=== PATIENT | male | born 1965 | race Two or more races ===

== ENCOUNTER 2017-11-24 17:26 | Inpatient (IN) | payer MEDICARE, OTHER ==
[2017-11-24 17:57] LABS: ADD MAN DIFF? NO
[2017-11-24 17:59] LABS: BASOPHIL # 0.1 10^3/ul (0.0-0.1); BASOPHILS % 0.7 % (0.0-2.0); EOSINOPHILS % 0.3 % (0.0-7.0); HEMOGLOBIN 16.7 g/dl (14.0-18.0); LYMPHOCYTES % 10.4 % (15.0-51.0); MEAN CORPUSCULAR HEMOGLOBIN 29.7 pg (29.0-33.0); MEAN CORPUSCULAR HGB CONC 33.4 g/dl (32.0-37.0); MEAN PLATELET VOLUME 9.1 fl (7.4-10.4); MONOCYTE # 1.1 10^3/ul (0.3-0.9); MONOCYTES % 11.4 % (0.0-11.0); NEUTROPHIL # 7.7 10^3/ul (1.6-7.5); NEUTROPHILS % 76.8 % (39.0-77.0); PLATELET COUNT 470 10^3/UL (140-415); RED BLOOD COUNT 5.62 10^6/ul (4.70-6.10); RED CELL DISTRIBUTION WIDTH 14.2 % (11.5-14.5)
[2017-11-24] MEDS: LACTATED RINGER'S 1,000 ML IV (18:00)
[2017-11-24] MEDS: ONDANSETRON 4 MG INJ IV (18:00)
[2017-11-24] MEDS: morphine 4 MG/ML VIAL IV ×2 (18:01→21:46)
[2017-11-24 18:19] LABS: PROTIME 13.3 Sec (11.9-14.9)
[2017-11-24 18:20] LABS: PARTIAL THROMBOPLASTIN TIME 29.2 Sec (25.0-35.0)
[2017-11-24 18:21] LABS: ALANINE AMINOTRANSFERASE 63 IU/L (13-69); ALBUMIN 3.9 g/dl (3.3-4.9); ALBUMIN/GLOBULIN RATIO 1.05; ALKALINE PHOSPHATASE 173 IU/L (42-121); ANION GAP 17 (8-16); ASPARTATE AMINO TRANSFERASE 61 IU/L (15-46); BILIRUBIN,INDIRECT 0.7 mg/dl (0-1.1); BILIRUBIN,TOTAL 0.7 mg/dl (0.2-1.3); BLOOD UREA NITROGEN 52 mg/dl (7-20); CALCIUM 9.8 mg/dl (8.4-10.2); CARBON DIOXIDE 31 mmol/L (21-31); CHLORIDE 92 mmol/L (97-110); CREATININE 2.14 mg/dl (0.61-1.24); GLUCOSE 145 mg/dl (70-220); LIPASE 105 U/L (23-300); SODIUM 136 mmol/L (135-144); TOTAL PROTEIN 7.6 g/dl (6.1-8.1)
[2017-11-24 18:33] LABS: TROPONIN-I 0.027 ng/ml (0.00-0.12)
[2017-11-24 18:56] LABS: LACTIC ACID 2.5 mmol/L (0.5-2.0)
[2017-11-24] MEDS: SOD CHLORIDE 0.9% 1,000 ML IV ×3 (19:32→23:27)
[2017-11-24] MEDS: traZODone 50 MG TAB PO (22:23)
[2017-11-24] MEDS: LORAZEPAM 2 MG INJ IV (22:23)
[2017-11-24] MEDS ORDERED: NACL 0.9% 3 ML SYG IV (22:30)
[2017-11-24] MEDS ORDERED: ONDANSETRON 4 MG INJ IV (22:30)
[2017-11-24] MEDS ORDERED: ACETAMINOPHEN 325 MG TAB PO (22:30)
[2017-11-24] MEDS ORDERED: ACETAMINOPHEN 1000MG/100ML IV 100 ML IVPB (22:30)
[2017-11-24] MEDS: PIPER-TAZO 3.375 GM IV (PMX) 100 ML IVPB (23:31)
[2017-11-24] MEDS: HYDROmorphONE 0.5 MG/0.5 ML SYG IV (23:36)
[2017-11-25 01:02] LABS: ADD MAN DIFF? NO
[2017-11-25 01:06] LABS: BASOPHIL # 0.1 10^3/ul (0.0-0.1); BASOPHILS % 0.8 % (0.0-2.0); EOSINOPHILS % 0.3 % (0.0-7.0); HEMATOCRIT 42.6 % (42.0-52.0); HEMOGLOBIN 14.3 g/dl (14.0-18.0); LYMPHOCYTES # 1.1 10^3/ul (0.8-2.9); LYMPHOCYTES % 16.7 % (15.0-51.0); MEAN CORPUSCULAR HEMOGLOBIN 29.9 pg (29.0-33.0); MEAN CORPUSCULAR HGB CONC 33.6 g/dl (32.0-37.0); MEAN CORPUSCULAR VOLUME 88.9 fl (82.0-101.0); MEAN PLATELET VOLUME 9.4 fl (7.4-10.4); MONOCYTE # 0.8 10^3/ul (0.3-0.9); MONOCYTES % 12.9 % (0.0-11.0); NEUTROPHIL # 4.3 10^3/ul (1.6-7.5); PLATELET COUNT 403 10^3/UL (140-415); POSITIVE DIFF @See below; RED BLOOD COUNT 4.79 10^6/ul (4.70-6.10); RED CELL DISTRIBUTION WIDTH 14.4 % (11.5-14.5)
[2017-11-25 01:06] LABS: WHITE BLOOD COUNT 6.3 10^3/ul (4.8-10.8)
[2017-11-25 01:28] LABS: LACTIC ACID 1.5 mmol/L (0.5-2.0)
[2017-11-25 05:06] LABS: ADD MAN DIFF? NO
[2017-11-25 05:12] LABS: WHITE BLOOD COUNT 6.6 10^3/ul (4.8-10.8)
[2017-11-25 05:12] LABS: BASOPHIL # 0.1 10^3/ul (0.0-0.1); BASOPHILS % 0.9 % (0.0-2.0); EOSINOPHILS # 0.1 10^3/ul (0.0-0.5); EOSINOPHILS % 0.8 % (0.0-7.0); HEMATOCRIT 42.5 % (42.0-52.0); HEMOGLOBIN 14.1 g/dl (14.0-18.0); LYMPHOCYTES # 1.1 10^3/ul (0.8-2.9); LYMPHOCYTES % 16.7 % (15.0-51.0); MEAN CORPUSCULAR HEMOGLOBIN 29.7 pg (29.0-33.0); MEAN CORPUSCULAR HGB CONC 33.2 g/dl (32.0-37.0); MEAN CORPUSCULAR VOLUME 89.5 fl (82.0-101.0); MEAN PLATELET VOLUME 9.5 fl (7.4-10.4); MONOCYTE # 0.9 10^3/ul (0.3-0.9); MONOCYTES % 13.1 % (0.0-11.0); NEUTROPHIL # 4.5 10^3/ul (1.6-7.5); NEUTROPHILS % 68.2 % (39.0-77.0); PLATELET COUNT 395 10^3/UL (140-415); POSITIVE DIFF @See below; RED BLOOD COUNT 4.75 10^6/ul (4.70-6.10); RED CELL DISTRIBUTION WIDTH 14.4 % (11.5-14.5)
[2017-11-25 05:20] LABS: HEMOGLOBIN A1C 5.2 % (0-5.9)
[2017-11-25 05:43] LABS: ALANINE AMINOTRANSFERASE 51 IU/L (13-69); ALBUMIN/GLOBULIN RATIO 0.93; ALKALINE PHOSPHATASE 124 IU/L (42-121); ANION GAP 15 (8-16); ASPARTATE AMINO TRANSFERASE 44 IU/L (15-46); BILIRUBIN,INDIRECT 0.4 mg/dl (0-1.1); BILIRUBIN,TOTAL 0.4 mg/dl (0.2-1.3); BLOOD UREA NITROGEN 68 mg/dl (7-20); CALCIUM 8.3 mg/dl (8.4-10.2); CARBON DIOXIDE 29 mmol/L (21-31); CHLORIDE 95 mmol/L (97-110); CHOL/HDL RATIO 2.6 RATIO; CHOLESTEROL 98 mg/dl (100-200); CREATININE 2.66 mg/dl (0.61-1.24); GLUCOSE 131 mg/dl (70-220); HDL CHOLESTEROL 37 mg/dl (28-71); LDL CHOLESTEROL,CALCULATED 45 mg/dl; POTASSIUM 4.1 mmol/L (3.5-5.1); SODIUM 135 mmol/L (135-144); TOTAL PROTEIN 6.2 g/dl (6.1-8.1); TRIGLYCERIDES 81 mg/dl (0-149)
[2017-11-25 05:49] LABS: LACTIC ACID 1.3 mmol/L (0.5-2.0)
[2017-11-25] MEDS: PIPER-TAZO 3.375 GM IV (PMX) 100 ML IVPB ×4 (05:49→23:20)
[2017-11-25] MEDS ORDERED: PIPER-TAZO 3.375 GM IV (PMX) 100 ML IVPB ×2 (06:00)
[2017-11-25] MEDS ORDERED: PANTOPRAZOLE 40 MG INJ IV (06:00)
[2017-11-25 06:10] LABS: THYROID STIMULATING HORMONE 0.582 MIU/L (0.465-4.680)
[2017-11-25] MEDS: morphine 2 MG INJ IV ×2 (06:11→12:06)
[2017-11-25] MEDS: PANTOPRAZOLE 40 MG INJ IV ×2 (06:11→17:19)
[2017-11-25] MEDS: CEPASTAT LOZENGE MT (06:11)
[2017-11-25] MEDS: HYDROmorphONE 0.5 MG/0.5 ML SYG IV (09:34)
[2017-11-25] MEDS: SOD CHLORIDE 0.9% 1,000 ML IV ×3 (09:35→23:19)
[2017-11-25 09:45] LABS: ADD UMIC YES; UR ASCORBIC ACID NEGATIVE (NEGATIVE); UR BACTERIA FEW /HPF (NONE SEEN); UR BILIRUBIN (Dip) NEGATIVE (NEGATIVE); UR BLOOD (Dip) NEGATIVE (NEGATIVE); UR CLARITY CLEAR (CLEAR); UR COLOR YELLOW (YELLOW); UR GLUCOSE (Dip) NEGATIVE (NEGATIVE); UR KETONES (Dip) NEGATIVE (NEGATIVE); UR LEUKOCYTE ESTERASE (Dip) NEGATIVE Leu/ul (NEGATIVE); UR NITRITE (Dip) NEGATIVE (NEGATIVE); UR RBC 0 /HPF (0-5); UR SPECIFIC GRAVITY (Dip) 1.015 (1.003-1.030); UR TOTAL PROTEIN (Dip) 1+ mg/dl (NEGATIVE); UR UROBILINOGEN (Dip) NEGATIVE (NEGATIVE); UR WBC 2 /HPF (0-5)
[2017-11-25 12:33] LABS: ADD UMIC NO; UR ASCORBIC ACID NEGATIVE (NEGATIVE); UR BILIRUBIN (Dip) NEGATIVE (NEGATIVE); UR BLOOD (Dip) NEGATIVE (NEGATIVE); UR CLARITY CLEAR (CLEAR); UR COLOR YELLOW (YELLOW); UR GLUCOSE (Dip) NEGATIVE (NEGATIVE); UR KETONES (Dip) NEGATIVE (NEGATIVE); UR LEUKOCYTE ESTERASE (Dip) NEGATIVE Leu/ul (NEGATIVE); UR NITRITE (Dip) NEGATIVE (NEGATIVE); UR SPECIFIC GRAVITY (Dip) 1.014 (1.003-1.030); UR TOTAL PROTEIN (Dip) NEGATIVE (NEGATIVE); UR UROBILINOGEN (Dip) NEGATIVE (NEGATIVE)
[2017-11-25 13:04] LABS: SODIUM,URINE RANDOM < 5 mmol/L (30-90)
[2017-11-25 14:52] LABS: ADD MAN DIFF? NO
[2017-11-25 14:54] LABS: BASOPHILS % 0.4 % (0.0-2.0); EOSINOPHILS # 0.1 10^3/ul (0.0-0.5); EOSINOPHILS % 1.3 % (0.0-7.0); HEMATOCRIT 36.4 % (42.0-52.0); HEMOGLOBIN 12.3 g/dl (14.0-18.0); LYMPHOCYTES # 1.2 10^3/ul (0.8-2.9); LYMPHOCYTES % 16.9 % (15.0-51.0); MEAN CORPUSCULAR HEMOGLOBIN 30.1 pg (29.0-33.0); MEAN CORPUSCULAR HGB CONC 33.8 g/dl (32.0-37.0); MEAN PLATELET VOLUME 9.5 fl (7.4-10.4); MONOCYTE # 0.9 10^3/ul (0.3-0.9); MONOCYTES % 12.8 % (0.0-11.0); NEUTROPHIL # 4.8 10^3/ul (1.6-7.5); NEUTROPHILS % 68.2 % (39.0-77.0); PLATELET COUNT 319 10^3/UL (140-415); POSITIVE DIFF @See below; RED BLOOD COUNT 4.09 10^6/ul (4.70-6.10); RED CELL DISTRIBUTION WIDTH 14.5 % (11.5-14.5)
[2017-11-25 17:04] LABS: ANISOCYTOSIS 1+ (0-0); BAND NEUTROPHILS #M 2.7 10^3/ul (0.0-0.6); BAND NEUTROPHILS % (M) 39 % (0-4); EOSINOPHILS % (M) 1 % (0-7); GIANT THROMBO% (M) 1 % (0-0); LYMPHOCYTES #M 0.7 10^3/ul (0.8-2.9); LYMPHOCYTES % (M) 11 % (15-51); MICROCYTOSIS 1+ (0-0); MONOCYTE #M 1.1 10^3/ul (0.3-0.9); MONOCYTES % (M) 16 % (0-11); PLATELET MORPHOLOGY COMMENT @See below; POLYCHROMASIA 3+ (0-0); REACTIVE LYMPHOCYTES #M 0.2 10^3/ul (0.0-0.0); REACTIVE LYMPHOCYTES% (M) 3 % (0-0); SEG NEUT #M 2.3 10^3/ul (1.6-7.5); SEGMENTED NEUTROPHILS (M) % 30 % (39-77); SMUDGE%M 1 % (0-0)
[2017-11-25] MEDS ORDERED: POLYMYXIN/BACITRACIN 1L IRRIG (19:37)
[2017-11-25] MEDS ORDERED: BUPIVACAINE 0.5% (SDV) 30 ML INJ (19:37)
[2017-11-25] MEDS ORDERED: ROCURONIUM 50 MG INJ ×2 (19:55→20:47)
[2017-11-25] MEDS ORDERED: ONDANSETRON 4 MG INJ (19:55)
[2017-11-25] MEDS ORDERED: FENTAnyl 50 MCG/ML VIAL (19:55)
[2017-11-25] MEDS ORDERED: PROPOFOL 20 ML (19:55)
[2017-11-25] MEDS ORDERED: METOCLOPRAMIDE 10 MG INJ (19:55)
[2017-11-25] MEDS ORDERED: MIDAZOLAM 1 MG/ML 2 ML INJ (19:55)
[2017-11-25] MEDS ORDERED: ROPIVACAINE 0.5 % 30 ML VIAL (19:55)
[2017-11-25] MEDS ORDERED: KETOROLAC 30 MG INJ (19:58)
[2017-11-25] MEDS ORDERED: PHENYLephrine (100 MCG/ML) 5ML SYG (20:06)
[2017-11-25] MEDS ORDERED: EPHEDrine SULFATE 50 MG/5 ML SYG IV (20:30)
[2017-11-25] MEDS ORDERED: MEPERIDINE 25 MG INJ IV (20:30)
[2017-11-25] MEDS ORDERED: HYDROmorphONE (0.2 MG/ML) 10ML SYG IV ×3 (20:30)
[2017-11-25] MEDS ORDERED: HYDROmorphONE 2 MG/ML SYG (20:47)
[2017-11-25] MEDS ORDERED: NEOSTIGMINE 3 MG/3 ML SYRINGE (20:53)
[2017-11-25] MEDS ORDERED: GLYCOPYRROLATE 0.4 MG INJ (20:53)
[2017-11-25] MEDS: BUPIVACAINE 0.25% (MPF) 30 ML INJ (20:57)
[2017-11-25] MEDS ORDERED: ONDANSETRON 4 MG INJ IV (21:00)
[2017-11-25] MEDS ORDERED: morphine 2 MG INJ IV (21:00)
[2017-11-25] MEDS: ONDANSETRON 4 MG INJ IV (21:25)
[2017-11-25] MEDS: DIPHENHYDRAMINE 50 MG INJ IV (21:26)
[2017-11-25 23:06] LABS: ADD MAN DIFF? NO
[2017-11-25 23:08] LABS: BASOPHILS % 0.6 % (0.0-2.0); EOSINOPHILS # 0.1 10^3/ul (0.0-0.5); EOSINOPHILS % 2.1 % (0.0-7.0); HEMATOCRIT 36.9 % (42.0-52.0); HEMOGLOBIN 12.1 g/dl (14.0-18.0); LYMPHOCYTES # 1.5 10^3/ul (0.8-2.9); LYMPHOCYTES % 21.8 % (15.0-51.0); MEAN CORPUSCULAR HEMOGLOBIN 30.2 pg (29.0-33.0); MEAN CORPUSCULAR HGB CONC 32.8 g/dl (32.0-37.0); MEAN PLATELET VOLUME 9.1 fl (7.4-10.4); MONOCYTE # 0.9 10^3/ul (0.3-0.9); MONOCYTES % 13.2 % (0.0-11.0); NEUTROPHIL # 4.1 10^3/ul (1.6-7.5); NEUTROPHILS % 61.3 % (39.0-77.0); PLATELET COUNT 306 10^3/UL (140-415); POSITIVE DIFF @See below; RED BLOOD COUNT 4.01 10^6/ul (4.70-6.10); RED CELL DISTRIBUTION WIDTH 14.5 % (11.5-14.5)
[2017-11-25 23:08] LABS: WHITE BLOOD COUNT 6.7 10^3/ul (4.8-10.8)
[2017-11-26] MEDS: morphine 2 MG INJ IV ×5 (00:18→21:56)
[2017-11-26] MEDS: PIPER-TAZO 3.375 GM IV (PMX) 100 ML IVPB (05:29)
[2017-11-26] MEDS: PANTOPRAZOLE 40 MG INJ IV ×2 (05:30→17:41)
[2017-11-26 05:55] LABS: ADD MAN DIFF? NO
[2017-11-26 06:02] LABS: BASOPHILS % 0.5 % (0.0-2.0); EOSINOPHILS # 0.1 10^3/ul (0.0-0.5); EOSINOPHILS % 2.1 % (0.0-7.0); HEMATOCRIT 35.8 % (42.0-52.0); HEMOGLOBIN 11.7 g/dl (14.0-18.0); LYMPHOCYTES # 1.3 10^3/ul (0.8-2.9); LYMPHOCYTES % 20.3 % (15.0-51.0); MEAN CORPUSCULAR HEMOGLOBIN 29.8 pg (29.0-33.0); MEAN CORPUSCULAR HGB CONC 32.7 g/dl (32.0-37.0); MEAN CORPUSCULAR VOLUME 91.1 fl (82.0-101.0); MEAN PLATELET VOLUME 9.6 fl (7.4-10.4); MONOCYTE # 0.8 10^3/ul (0.3-0.9); MONOCYTES % 12.5 % (0.0-11.0); NEUTROPHIL # 3.9 10^3/ul (1.6-7.5); NEUTROPHILS % 63.8 % (39.0-77.0); PLATELET COUNT 351 10^3/UL (140-415); POSITIVE DIFF @See below; RED BLOOD COUNT 3.93 10^6/ul (4.70-6.10); RED CELL DISTRIBUTION WIDTH 14.6 % (11.5-14.5)
[2017-11-26 06:02] LABS: WHITE BLOOD COUNT 6.2 10^3/ul (4.8-10.8)
[2017-11-26 06:19] LABS: ANION GAP 13 (8-16); BLOOD UREA NITROGEN 37 mg/dl (7-20); CALCIUM 7.8 mg/dl (8.4-10.2); CARBON DIOXIDE 26 mmol/L (21-31); CHLORIDE 102 mmol/L (97-110); CREATININE 1.42 mg/dl (0.61-1.24); GLUCOSE 119 mg/dl (70-220); POTASSIUM 3.8 mmol/L (3.5-5.1); SODIUM 137 mmol/L (135-144)
[2017-11-26 06:23] LABS: MAGNESIUM 2.3 mg/dl (1.7-2.5)
[2017-11-26 06:23] LABS: PHOSPHORUS 3.9 mg/dl (2.5-4.9)
[2017-11-26] MEDS: SOD CHLORIDE 0.9% 1,000 ML IV ×2 (08:42→21:10)
[2017-11-26 15:51] LABS: CREATININE, RANDOM URINE 85 mg/dL (20-370); MICROALBUMIN 1.1 mg/dL; MICROALBUMIN/CREATININE RATIO 13 (<30)
[2017-11-26] MEDS: HYDROmorphONE 0.5 MG/0.5 ML SYG IV (17:41)
[2017-11-26] MEDS: OXYCODONE/ACETAMINOPHEN (5/325) TAB PO (21:12)
[2017-11-27] MEDS: morphine 2 MG INJ IV ×2 (02:31→06:59)
[2017-11-27] MEDS: OXYCODONE/ACETAMINOPHEN (5/325) TAB PO ×2 (05:00→10:15)
[2017-11-27 05:23] LABS: ADD MAN DIFF? NO
[2017-11-27 05:25] LABS: WHITE BLOOD COUNT 5.3 10^3/ul (4.8-10.8)
[2017-11-27 05:25] LABS: BASOPHILS % 0.6 % (0.0-2.0); EOSINOPHILS # 0.2 10^3/ul (0.0-0.5); HEMATOCRIT 33.3 % (42.0-52.0); HEMOGLOBIN 10.7 g/dl (14.0-18.0); LYMPHOCYTES # 1.4 10^3/ul (0.8-2.9); LYMPHOCYTES % 25.4 % (15.0-51.0); MEAN CORPUSCULAR HEMOGLOBIN 29.6 pg (29.0-33.0); MEAN CORPUSCULAR HGB CONC 32.1 g/dl (32.0-37.0); MEAN CORPUSCULAR VOLUME 92.2 fl (82.0-101.0); MEAN PLATELET VOLUME 9.2 fl (7.4-10.4); MONOCYTE # 0.7 10^3/ul (0.3-0.9); MONOCYTES % 13.2 % (0.0-11.0); NEUTROPHILS % 56.7 % (39.0-77.0); PLATELET COUNT 336 10^3/UL (140-415); RED BLOOD COUNT 3.61 10^6/ul (4.70-6.10); RED CELL DISTRIBUTION WIDTH 14.1 % (11.5-14.5)
[2017-11-27 05:52] LABS: ANION GAP 10 (8-16); BLOOD UREA NITROGEN 14 mg/dl (7-20); CALCIUM 7.5 mg/dl (8.4-10.2); CARBON DIOXIDE 27 mmol/L (21-31); CHLORIDE 102 mmol/L (97-110); CREATININE 0.88 mg/dl (0.61-1.24); GLUCOSE 109 mg/dl (70-220); MAGNESIUM 2.1 mg/dl (1.7-2.5); PHOSPHORUS 3.1 mg/dl (2.5-4.9); POTASSIUM 3.4 mmol/L (3.5-5.1); SODIUM 136 mmol/L (135-144)
[2017-11-27] MEDS: PANTOPRAZOLE 40 MG INJ IV (06:11)
[2017-11-27] MEDS: SOD CHLORIDE 0.9% 1,000 ML IV (10:08)
[2017-11-27] MEDS: POTASSIUM CHLORIDE (SR) 20 MEQ TAB PO (10:16)
[2017-11-27] MEDS ORDERED: morphine LIQ (20 MG/ML PO SYG) PO (14:30)
== END 2017-11-27 14:15 | disposition home or self-care (01) | DRG 354 ==
LOC: E/R 17:26 → MS1 22:02
PROC: 0WUF0JZ Supplement Abdominal Wall with Synthetic Substitute, Open Approach (ICD-10-PCS; principal; 2017-11-25 18:30)
DX: K43.0 Incisional hernia with obstruction, without gangrene (principal); E87.2 Acidosis; N17.9 Acute kidney failure, unspecified; R65.10 Systemic inflammatory response syndrome (SIRS) of non-infectious origin without acute organ dysfunction; R16.0 Hepatomegaly, not elsewhere classified; E87.5 Hyperkalemia; E86.0 Dehydration; I10 Essential (primary) hypertension; F17.210 Nicotine dependence, cigarettes, uncomplicated; K70.30 Alcoholic cirrhosis of liver without ascites; F10.20 Alcohol dependence, uncomplicated; Z96.642 Presence of left artificial hip joint
CPT/HCPCS: 36415; 71045; 74176; 76700; 80048; 80053; 80061; 81001; 81003; 82043; 83036; 83605; 83690; 83735; 84100; 84155; 84300; 84443; 84484; 85025; 85610; 85730; 86850; 86900; 86901; 88302; 93005; 93306; 96374; 96375; 96376; 99285-25